=== PATIENT | female | born 2005 | race Caucasian/White ===

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

== ENCOUNTER → 2024-06-13 | Outpatient (CLI) | payer BC ==
[2024-06-14 01:14] LABS: HCT 39.7 % (37.2-46.3); HGB 12.8 g/dL (12.0-15.0); MCH 27.4 pg (27.0-32.0); MCHC 32.2 g/dL (32.0-37.0); MCV 84.8 FL (80.0-97.0); Mean Platelet Volume 9.5 FL (9.5-12.2); NRBC Per 100 WBC 0 X 10*3/uL (0.00-0.01); Platelet Count 238 X 10*3/uL (140-440); RBC 4.68 X 10*6/uL (4.10-5.20); RDW 12.6 % (11.5-14.5); WBC 7.74 X 10*3/uL (4.50-10.00)
[2024-06-14 02:13] LABS: % Iron Saturation 15.06 (12.00-45.00); C Reactive Protein, High Sens 4.78 mg/L (0.000-3.000); Ferritin 18.7 ng/mL (10.0-291.0)
== END | disposition home or self-care (01) ==
LOC: LABWHC1 15:37
PROVIDERS: ATTEND Student in an Organized Health Care Education/Training Program
DX: Z13.6 Encounter for screening for cardiovascular disorders (principal); I50.9 Heart failure, unspecified; E11.9 Type 2 diabetes mellitus without complications; E03.9 Hypothyroidism, unspecified; D72.9 Disorder of white blood cells, unspecified; D50.9 Iron deficiency anemia, unspecified
CPT/HCPCS: 36415; 82306; 82728; 83036; 83540; 83550; 83880; 85027; 86141

== ENCOUNTER 2024-08-21 19:37 | Emergency (ER) | payer BC ==
[2024-08-21 19:42] VITALS: RESP 18
--- NOTE | 2024-08-21 21:18 | ED ---
Neck Injury/Pain HPI - General Chief Complaint: Neck Pain/Injury Stated Complaint: Neck Pain, 15 weeks preg Time Seen by Provider: 08/21/24 19:56 Source: patient, RN notes reviewed Mode of arrival: ambulatory Limitations: no limitations - History of Present Illness Initial Comments: This is a 15-week , 19-year-old female presenting for neck pain (11/30) upon waking this morning. Patient states pain is "excruciating", endorsing worsening pain with head/neck movement. Patient endorses tightness in her left shoulder with inability to move/turn head to the left. Denies extremity weakness/paresthesia/radiculopathy, headache, fever, urinary symptoms, vaginal bleeding/discharge, abdominal pain.. MD Complaint: neck pain Onset/Timin -: days(s) Place: home Radiation: left shoulder Severity scale (1-10): 10 Consistency: constant Improves With: immobilization, rest supine, remaining still Worsens With: movement of neck Treatments Prior to Arrival: none - Related Data Home Medications Medication Instructions Recorded Confirmed Ibuprofen [Motrin Ib] 600 mg PO Q8H PRN 06/03/22 06/03/22 norgestimate-ethinyl estradioL 1 tab PO HS 06/03/22 06/03/22 [Tri-Sprintec Tablet] Previous Rx's Medication Instructions Recorded Cephalexin [Keflex] 500 mg PO Q12HR 10 Days #20 cap 12/04/22 Cyclobenzaprine [Flexeril] 10 mg PO TID PRN #12 tab 08/21/24 Lidocaine 4% Patch 1 patch TOPICAL DAILY PRN #10 patch 08/21/24 Allergies Allergy/AdvReac Type Severity Reaction Status Date / Time almond Allergy Unknown Verified 08/21/24 19:42 Fish Containing Products Allergy Anaphylaxis Verified 08/21/24 19:42 Milk Containing Products Allergy Cough Verified 08/21/24 19:42 (Dairy) [Dairy] peanut Allergy Unknown Verified 08/21/24 19:42 shellfish derived Allergy Anaphylaxis Verified 08/21/24 19:42 tree nut [Nut] Allergy Unknown Verified 08/21/24 19:42 Review of Systems ROS Statement: Those systems with pertinent positive or pertinent negative responses have been documented in the HPI. ROS Other: All systems not noted in ROS Statement are negative. Past Medical History Past Medical History: Asthma Additional Past Medical History / Comment(s): anemia History of Any Multi-Drug Resistant Organisms: None Reported Past Surgical History: No Surgical Hx Reported Past Psychological History: No Psychological Hx Reported Smoking Status: Never smoker Past Alcohol Use History: None Reported Past Drug Use History: None Reported General Exam Limitations: no limitations General appearance: alert, in no apparent distress Head exam: Present: atraumatic, normocephalic, normal inspection Eye exam: Present: normal appearance, PERRL, EOMI. Absent: scleral icterus, conjunctival injection, periorbital swelling ENT exam: Present: normal exam, mucous membranes moist Neck exam: Present: normal inspection. Absent: tenderness, meningismus, lymphadenopathy Respiratory exam: Present: normal lung sounds bilaterally. Absent: respiratory distress, wheezes, rales, rhonchi, stridor Cardiovascular Exam: Present: regular rate, normal rhythm, normal heart sounds. Absent: systolic murmur, diastolic murmur, rubs, gallop, clicks GI/Abdominal exam: Present: soft, normal bowel sounds. Absent: distended, tenderness, guarding, rebound, rigid Extremities exam: Present: normal inspection, full ROM, normal capillary refill. Absent: tenderness, pedal edema, joint swelling, calf tenderness Back exam: Present: tenderness, muscle spasm (Positive left trapezius muscle spasm and point tenderness). Absent: full ROM (Patient's head favors leaning to right side. Patient states she is unable to tilt head to neutral position or touch left ear to left shoulder.), paraspinal tenderness, vertebral tenderness Neurological exam: Present: alert, oriented X3, CN II-XII intact Psychiatric exam: Present: normal affect, normal mood Skin exam: Present: warm, dry, intact, normal color. Absent: rash Course Vital Signs 08/21/24 08/21/24 19:40 23:18 Temperature 97.7 F 97.8 F Pulse Rate 99 78 Respiratory 18 18 Rate Blood Pressure 104/69 132/79 O2 Sat by Pulse 96 99 Oximetry Medical Decision Making - Medical Decision Making Was pt. sent in by a medical professional or institution (, PA, FORM BLOCK [employer]ER, urgent care, hospital, or fpc...) When possible be specific @ -No Did you speak to anyone other than the patient for history (EMS, parent, family, police, friend...)? What history was obtained from this source @ -No Did you review nursing and triage notes (agree or disagree)? Why? @ -I reviewed and agree with nursing and triage notes Were old charts reviewed (outside hosp., previous admission, EMS record, old EKG, old radiological studies, urgent care reports/EKG's, fpc records)? Report findings @ -No old charts were reviewed Differential Diagnosis (chest pain, altered mental status, abdominal pain women, abdominal pain men, vaginal bleeding, weakness, fever, dyspnea, syncope, headache, dizziness, GI bleed, back pain, seizure, CVA, palpatations, mental health, musculoskeletal)? @ -Differential Musculoskeletal Muscular strain, contusion, ligament sprain, fracture, arthritis, septic arthritis, bursitis, cellulitis, muscle spasm, nerve compression, DVT, arterial occlusion, herpes zoster, electrolyte abnormality, tumor.... This is not meant to be in all inclusive list EKG interpreted by me (3pts min.). @ -Not done X-rays interpreted by me (1pt min.). @ -Cervical spine x-ray shows no acute fracture or dislocation with no DDD. CT interpreted by me (1pt min.). @ -None done U/S interpreted by me (1pt. min.). @ -None done What testing was considered but not performed or refused? (CT, X-rays, U/S, labs)? Why? @ -None What meds were considered but not given or refused? Why? @ -None Did you discuss the management of the patient with other professionals (professionals i.e. , PA, FORM BLOCK [employer]KER, lab, RT, psych nurse, social welfare administrator, courtroom clerk, teacher, network security officer, counseling case manager)? Give summary @ -No Was smoking cessation discussed for >3mins.? @ -No Was critical care preformed (if so, how long)? @ -No Were there social determinants of health that impacted care today? How? (Homelessness, low income, unemployed, alcoholism, drug addiction, transportation, low edu. Level, literacy, decrease access to med. care, halfway, rehab)? @ -No Was there de-escalation of care discussed even if they declined (Discuss DNR or withdrawal of care, Hospice)? DNR status @ -No What co-morbidities impacted this encounter? (DM, HTN, Smoking, COPD, CAD, Cancer, CVA, ARF, Chemo, Hep., AIDS, mental health diagnosis, sleep apnea, morbid obesity)? @ - Was patient admitted / discharged? Hospital course, mention meds given and route, prescriptions, significant lab abnormalities, going to OR and other pertinent info. @ -Cervical spine x-ray shows no acute fracture or dislocation with no DDD. Patient provided p.o. Tylenol and Flexeril with lidocaine patches sent to patient's pharmacy. Advised warm compress to affected area for 10 minutes up to 4 times daily along with gentle massage and stretching. Discussed patient with Dr. Barney. Undiagnosed new problem with uncertain prognosis? @ -No Drug Therapy requiring intensive monitoring for toxicity (Heparin, Nitro, Insulin, Cardizem)? @ -No Were any procedures done? @ -No Diagnosis/symptom? @ -Trapezius muscle spasm Acute, or Chronic, or Acute on Chronic? @ -Acute Uncomplicated (without systemic symptoms) or Complicated (systemic symptoms)? @ -Uncomplicated Side effects of treatment? @ -No Exacerbation, Progression, or Severe Exacerbation? @ -No Poses a threat to life or bodily function? How? (Chest pain, [place], [place], pneumonia, PE, COPD, DKA, ARF, appy, cholecystitis, CVA, Diverticulitis, Homicidal, Suicidal, threat to staff... and all critical care pts) @ -No Disposition Clinical Impression: Strain of neck muscle Disposition: HOME SELF-CARE Condition: Fair Instructions (If sedation given, give patient instructions): Cervical Strain (ED) Additional Instructions: Apply warm compress to affected area for 10 minutes up to 4 times daily. Gentle stretching massage also recommended. Tylenol every 4-6 hours as needed for pain. Follow-up with primary care for any ongoing symptoms. Prescriptions: Cyclobenzaprine [Flexeril] 10 mg PO TID PRN #12 tab PRN Reason: Spasms Lidocaine 4% Patch 1 patch TOPICAL DAILY PRN #10 patch PRN Reason: Pain Is patient prescribed a controlled substance at d/c from ED?: No Referrals: Princess Barney DO [Primary Care Provider] - 1-2 days Time of Disposition: 22:58
--- NOTE | 2024-08-21 21:30 | XR ---
EXAMINATION TYPE: XR cervical spine comp DATE OF EXAM: 08/21/2024 9:25 PM INDICATION: Patient age:Female; 19 years old; Reason for study: Woke with neck pain; PHH, pain COMPARISON: None TECHNIQUE: The cervical spine was imaged in 4 projections. Frontal, lateral, odontoid and bilateral o blique. FINDINGS: The osseous structures show normal alignment without evidence of an acute fracture. Slight levocurvat ure of the cervical spine. No disc space narrowing or osteophytosis is identified. The intervertebral disk spaces are preserved. Pedicles are intact. Soft tissues are within normal limits. The odontoi d appears intact. IMPRESSION: 1. No fracture or dislocation. 2. No degenerative disc disease identified. [facility], , 08/21/2024 9:27 PM
[2024-08-21] MEDS: ACETAMINOPHEN TAB 500 MG TAB PO STA (21:34)
[2024-08-21 23:19] VITALS: BP 132/79; PULSE 78; TEMP 97.8
== END 2024-08-22 02:54 | disposition home or self-care (01) ==
LOC: EC 19:37
DX: O9A.212 Injury, poisoning and certain other consequences of external causes complicating pregnancy, second trimester (principal); S16.1XXA Strain of muscle, fascia and tendon at neck level, initial encounter; Z91.010 Allergy to peanuts; Z91.013 Allergy to seafood; Z91.018 Allergy to other foods; Z91.011 Allergy to milk products; Z3A.15 15 weeks gestation of pregnancy
CPT/HCPCS: 72050; 99283